=== PATIENT | male | born 1950 | race Caucasian/White ===

== ENCOUNTER 2019-03-14 13:44 | Inpatient (IN) | payer OTHER ==
[~2019-03-14] VITALS: Ht 177.8 cm; Wt 111.1 kg
[2019-03-14] MEDS ORDERED: DILTIAZEM ER360 M1 (13:55)
[2019-03-14] MEDS ORDERED: COZAAR100 MG (13:55)
[2019-03-14] MEDS ORDERED: ELIQUIS5 MG (13:55)
--- NOTE | 2019-03-14 13:55 | NUR ---
SE RECIBE PTE ALERTA Y ORIENTADO X3, EN AMBULANCIA REFERIDO DE CRUCERO POR CHF.
--- NOTE | 2019-03-14 14:55 | NUR ---
SE RECIBE PTE MASCULINO DE 68 YRS EN AMBULANCIA DE [facility],CON DIFICULTAD RESPIRATORIA . SE ACOMODA EN CRITICO SE CONCECTA A MONITOR CARDICO. ES EVALUADO POR EL JAYLAN ROQUEIN ORDENA TRATAMIENTO LA CUAL SE EJECUTA. SE LE NICOLE MUESTRAS DE SANGRES ORDENADO . SE LE COMIENZA EN ANTIBIOTICOS ORDENADOS Y SE LE PONE EN ISOLACION PORTATIL . SE LE REALIZA ABG;S Y SE LE COMEIZA EN TERAPIA RESPIRATORIA POR MS.LOAIZA . SE MANTIENE BAJO OBSERVACION.
--- NOTE | 2019-03-14 15:20 | NUR ---
SE RECIBE PTE DEL TURNO ANTERIOR,PTE MASCULINO DE 68 YRS,PTE ALERTA X 3, PTE EN CAMA ICU/2 CON BARANDAS ELEVADAS POR BANERJEE SEGURIDAD, PTE CONECTADO A MONITOR CARDIACO Y OXIMETRIA DE PULSO CONTINUO, PTE CON VENTURY MASK @ 50% DE O2,PTE CON PIKE DE AISLAMIENTO, PTE CON H/L PATENTE Y ERMELINDA DE EDEMA Y/O ERITEMA EN AREA DE VENOPUNCION,PTE ORINANDO ESPONTANEO, S/V TOMADOS Y PASADOS A GRAFICAS,PTE EN ESPERA DE CONSULTA DE MEDICINA INTERNA, SE OBSERVARAN POR CAMBIOS EN BANERJEE CONDICION DE ALFONZO.
[2019-03-18] MEDS ORDERED: MEDROLPACK PO (15:40)
== END 2019-03-18 17:38 | disposition home or self-care (01) | DRG 292 ==
LOC: ER 13:44 → MEDI 16:55
PROVIDERS: ADMIT Internal Medicine
PROC: 4A12X4Z Monitoring of Cardiac Electrical Activity, External Approach (ICD-10-PCS; principal; 2019-03-14)
PROC: 4A033R1 Measurement of Arterial Saturation, Peripheral, Percutaneous Approach (ICD-10-PCS; 2019-03-14)
PROC: 3E0F7GC Introduction of Other Therapeutic Substance into Respiratory Tract, Via Natural or Artificial Opening (ICD-10-PCS; 2019-03-14)
PROC: B246ZZZ Ultrasonography of Right and Left Heart (ICD-10-PCS; 2019-03-14)
PROC: B54DZZZ Ultrasonography of Bilateral Lower Extremity Veins (ICD-10-PCS; 2019-03-14)
PROC: BB24ZZZ Computerized Tomography (CT Scan) of Bilateral Lungs (ICD-10-PCS; 2019-03-14)
DX: I11.0 Hypertensive heart disease with heart failure (principal); I48.19 Other persistent atrial fibrillation; J45.32 Mild persistent asthma with status asthmaticus; I34.0 Nonrheumatic mitral (valve) insufficiency; I70.0 Atherosclerosis of aorta; I87.2 Venous insufficiency (chronic) (peripheral); R09.02 Hypoxemia; I50.9 Heart failure, unspecified